=== PATIENT | female | born 1965 | race Caucasian/White ===

== ENCOUNTER → 2019-08-02 | Outpatient (CLI) | payer OTHER ==
[~2019-08-02] VITALS: Ht 172.7 cm; Wt 95.3 kg
[~2019-08-02] MED LIST: FOLIC ACID0.8 M1 PO; LORATIDINE 10 M10 M1 PO; LOSARTAN-HCTZ1 EAC3 PO; MEDROLDOSEPACK PO; METHOTREXATE 22.5 M1 PO; MOBIC15 MG PO; TYLENOL ARTHRI650 MG PO; VITAMIN D5000 UNI1 PO
[2019-08-02 10:27] VITALS: BP 143/87
--- NOTE | 2019-08-02 11:07 | NUR ---
Pain Clinic Assessment: 1. History of Osteoarthritis: SPINE HIPS History of Rheumatoid Arthritis: YES 2. Height: 5 ft. 8 in. 172.7 cm. Weight: 210.0 lb. oz. 95.256 kg. Patient's BMI: 31.9 3. Vital Signs: BP: 143/87 Pulse: 80 Resp: 16 Temp: 02 Sat: 100 ECG Mon: 4. Pain Intensity: 8 5. Fall Risk: Dizziness: N Needs help standing or walking: N Fallen in the last 3 months: N Fall risk comments: 6. Patient on Blood Thinner: None 7. History of Hypertension: N 8. Opioid Therapy greater than 6 weeks: N Opiate Contract Signed: 9. Risk Assessment Tool Provided: 10. Functional Assessment Tool: 11. Recreational Drug Use: Never Drug Type: Tobacco Use: Never Smoker Tobacco Type: Amount or Packs/day: How Many Years: Alcohol Use: No Frequency: Quant:
--- NOTE | 2019-08-23 08:25 | HPC ---
[address] [place] [address] PAIN MANAGEMENT CONSULTATION Name: LORETTA CASTILLO [id number] Admission: 08/02/19 Attend Phys: Theresa Jolly MD Discharge: Date of : 67 Report #: [id number] THIS REPORT FOR: //name// CC: Sruthi Jolly DATE OF SERVICE: 08/02/2019 CHIEF COMPLAINT: Low back pain. HISTORY: The patient is a 53-year-old female who has been referred to the pain clinic for evaluation of lower back pain. The patient states that she has a job where she does quite a bit of sitting. Notes pain in the mid portion of her back as well as in the right buttocks and pain down into her leg. She has had x-rays involving her hips and been told that she has some moderate arthritic changes. She has used nonsteroidal anti-inflammatory medications [id number]. Notes that certain positions such as lying on her stomach can exacerbate her discomfort as well. She does have pain in the left and right side. She has been referred to the pain clinic for evaluation. ALLERGIES: No known drug allergies. CURRENT MEDICATIONS: Tylenol Arthritis, folic acid 0.8 mg, vitamin D3 5000 units, methotrexate 2.5 mg 6 tablets weekly, losartan/hydrochlorothiazide 100/25, loratadine 10 mg. PAST MEDICAL HISTORY: Hypertension, joint disease. PAST SURGICAL HISTORY: Hysterectomy in 2009, thyroid surgery in 2013, neurofibroma tumor in 1995, lipoma on the forehead removed in 2015, lipoma back of his left thigh in 2019. 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 REVIEW OF SYSTEMS: Generally, good health, wears glasses, skin rash. LABORATORY DATA: No new laboratory values are available at the time of our interview. PAIN CLINIC ASSESSMENT AND PQRS: 1. History of osteoarthritis. The patient has osteoarthritic changes involving her spine and hip. She is being treated for rheumatoid arthritis. 2. Height 5 feet 8 inches, weight 210 pounds, BMI is 31.9. 3. Vital signs: Blood pressure is 143/87, pulse 80, respiratory rate 16, room air saturations 100%. 4. Pain intensity, 05/25. [address] [place] [address] PAIN MANAGEMENT CONSULTATION Name: LORETTA CASTILLO Room #: [facility]#: [id number] Admission: 08/02/19 Attend Phys: Theresa Jolly MD Discharge: Date of : 67 Report #: [id number] 5. Fall history, the patient has not fallen. 6. Blood thinner, the patient is not on a blood thinning medication. 7. Positive for hypertension, the patient is not being treated for hypertension. 8. Opioids greater than 6 weeks. 9. Risk assessment tool, low for opioid use. 10. Functional assessment tool. 11. Recreational drug use, the patient denies. 12. Tobacco, the patient denies smoking. 13. Alcohol, the patient denies frequent use of alcoholic beverages. PHYSICAL EXAMINATION: GENERAL: The patient is a well-developed, well-nourished, black female. Appears her stated age. She is alert and oriented x 3. Affect is appropriate. Speech is fluent. HEENT: Normocephalic, atraumatic. Extraocular eye muscles intact. Sclerae nonicteric. Mucous membranes are moist. NECK: Without adenopathy or JVD. HEART: Regular rate. LUNGS: Clear to auscultation. EXTREMITIES: Upper extremity muscle strength judged to be 5/5 for the major muscle groups in the upper extremity. The patient has pain in the mid back area at about T8-T9 and down in the T10-T11 area midline. Has some pain and discomfort in the right as well as the left hip area, more so on the right side today. Right-sided bending causes some increased discomfort. Right side rotation causes some increased discomfort. Forward bending to about 80 degrees causes some increased low back discomfort. Lumbar extension was not very problematic. Heel and toe walking is slightly difficult secondary to inability to stand on her toes and heels. Deep tendon reflexes are +1 at the biceps, +1 at the knees bilaterally, absent at the ankles. IMPRESSION: 1. Low back pain. 2. Bilateral hip pain. X-ray was showing moderate arthritis. 3. Upper and mid back discomfort/myofascial. 4. Rheumatoid arthritis. RECOMMENDATIONS: We will have the patient try a Medrol Dosepak. She will take the medication as prescribed. We will also try a long-acting nonsteroidal anti-inflammatory medication, Mobic. Should her hip pain continue, possibility of right hip injection with local anesthetic and steroid are options. The patient may well benefit from physical therapy to be provided with appropriate exercises to help decrease pain and discomfort. The patient will also consider ergonomics of her work environment. She may benefit in the future from trigger points into the myofascial areas of her mid back. [address] [place] [address] PAIN MANAGEMENT CONSULTATION Name: LORETTA CASTILLO Room #: REG [facility] Cb.#: [id number] Admission: 08/02/19 Attend Phys: Theresa Jolly MD Discharge: Date of : 67 Report #: [id number] We would like to thank you for letting us participate in her care. We hope she continues to improve. <ELECTRONICALLY SIGNED> By: Theresa Jolly MD 08/23/19 0825 [id number] Theresa Jolly MD /[facility]
== END ==
LOC: PAIN 06:58
DX: M54.5 Low back pain (principal); M25.551 Pain in right hip; M25.552 Pain in left hip; M06.9 Rheumatoid arthritis, unspecified